=== PATIENT | male | born 1995 | race African-American/Black ===

== ENCOUNTER 2016-09-12 17:57 | Emergency (ER) | payer SELFPAY ==
[~2016-09-12] VITALS: Ht 182.9 cm; Wt 89.0 kg
[~2016-09-12 17:57] MED LIST: Z.0.NO CURRENT MEDS
--- NOTE | 2016-09-12 18:49 | PD ---
HPI . left ankle pain Chief Complaint: Injury Time Seen by Provider: 18:48 Travel History International Travel<30 days: No Contact w/Intl Traveler<30days: No Traveled to known affect area: No History of Present Illness HPI 20-year-old male here with complaints of left ankle pain while playing basketball at 2 PM today. Patient says he has left ankle pain and difficulty walking. He tells me that he knows his ankle is not broken and he came to the emergency department hopes of obtaining some type of brace or Nate wrap to his left ankle and crutches. He says the pain is about 8/10 and he would like something for the pain. He denies any head injury or LOC. PFSH Past Medical History Diminished Hearing: No Immunizations Current: Yes Social History Alcohol Use: No Tobacco Use: No Substance Use: No Allergies-Medications (Allergen,Severity, Reaction): Coded Allergies: No Known Allergies (Verified , 01/29/13) Reported Meds & Prescriptions Reported Meds & Active Scripts Active Ibuprofen 800 Mg Tab 800 Mg PO TID Reported No Current Meds (Miscellaneous Medication) Misc Review of Systems General / Constitutional: No: Fever Eyes: No: Visual changes HENT: No: Headaches Cardiovascular: No: Chest Pain or Discomfort Respiratory: No: Shortness of Breath Gastrointestinal: No: Abdominal Pain Genitourinary: No: Dysuria Musculoskeletal: Positive: Pain (left ankle) Skin: No Rash Neurologic: No: Weakness Psychiatric: No: Depression Endocrine: No: Polydipsia Hematologic/Lymphatic: No: Easy Bruising Physical Exam Narrative GENERAL: AAO x 3, no acute distress, Well-nourished, well-developed patient. SKIN: Warm and dry. No visible rashes or bruising. HEAD: Normocephalic and atraumatic. EYES: No scleral icterus. No injection or drainage. ENT: No nasal drainage noted. Airway patent. NECK: Supple, trachea midline. No JVD. CARDIOVASCULAR: Regular rate and rhythm without murmurs, gallops, or rubs. RESPIRATORY: Breath sounds equal bilaterally. No accessory muscle use. No rhonchi or rales. GASTROINTESTINAL: Visual inspection normal EXTREMITIES: No cyanosis. Minimal edema to the lateral malleolus of the left ankle. Some minimal tenderness there. Range of motion is normal but limited secondary pain. Patient can dorsiflex and plantarflex normally. Strength is normal BACK: Nontender without obvious deformity. No CVA tenderness. PSYCH: AAO x 3, normal affect. Data Data Orders ^ Nate Bandage (09/12/16 18:51) Crutches (09/12/16 18:51) Ibuprofen (Motrin) (09/12/16 19:00) MDM Medical Decision Making Medical Screen Exam Complete: Yes Emergency Medical Condition: Yes Medical Record Reviewed: Yes Differential Diagnosis left ankle sprain, less likely fracture, less likely Achilles tendon rupture Narrative Course 20-year-old male here with complaints of left ankle pain while playing basketball at 2 PM today. Patient says he has left ankle pain and difficulty walking. He tells me that he knows his ankle is not broken and he came to the emergency department hopes of obtaining some type of brace or Nate wrap to his left ankle and crutches. He says the pain is about 8/10 and he would like something for the pain. He denies any head injury or LOC. Patient seen and examined. He has some mild lateral malleolus edema and tenderness on the left ankle. I do not suspect a fracture. He also tells me he is not concerned about fracture. He is requesting a brace/wrap and crutches. Ibuprofen in the ED for pain. Ibuprofen Rx for home. Follow-up with primary care provider. FARHAD Patient verbalized understanding of instructions, questions were answered, and thanked me for their care. I advised them if their condition worsens, please return to the nearest emergency room for further care. Diagnosis Primary Impression: Left ankle pain Qualified Code: M25.572 - Acute left ankle pain Additional Impression: Left ankle sprain Qualified Code: S93.402A - Sprain of left ankle, unspecified ligament, initial encounter Patient Instructions: General Instructions Additional Instructions: Rest the affected area as much as possible. Do this for the next 2-4 days. Ice this area for 15-20 minutes at a time. You can do this every hour or as much as tolerated. Keep this area compressed (nate bandage) as tolerated. Elevate this area. Use ibuprofen as needed for pain and inflammation. Please return to emergency department if your symptoms return or worsen. Follow up with your primary care provider. Take medications as prescribed. Med/Other Pt SpecificInfo: Prescription(s) given Scripts Ibuprofen 800 Mg Osi873 Mg PO TID #21 TAB Prov:Gustavo Pederson MD 09/12/16 Disposition: 01 DISCHARGE HOME Condition: Stable Peggy Bonilla September 12, 2016 18:49
[2016-09-12] MEDS ORDERED: IBUP800T23 PO (18:52)
[2016-09-12] MEDS ORDERED: IBUPROFEN 800 MG TAB PO ONE (19:00)
== END 2016-09-12 19:32 | disposition home or self-care (01) ==
LOC: NEPK 17:57 → NED 17:57 → NEPK 19:32
DX: S93.402A Sprain of unspecified ligament of left ankle, initial encounter (principal); X58.XXXA Exposure to other specified factors, initial encounter; Y93.67 Activity, basketball; Y92.9 Unspecified place or not applicable; Y99.8 Other external cause status
CPT/HCPCS: 99283; E0113